=== PATIENT | female | born 1975 | race Caucasian/White ===

== ENCOUNTER 2020-12-19 17:40 | Observation (INO) ==
[2020-12-19 18:44] LABS: Basophils # 0.1 K/mcL (0.0-0.2); Basophils % 1.1 %; Eosinophils # 0.2 K/mcL (0.0-0.6); Eosinophils % 2.2 %; Hematocrit 42.5 % (35.3-44.9); Hemoglobin 14.1 g/dL (11.5-15.4); Immature Granulocytes % 0.4 % (0-4); Lymphocytes # 2.1 K/mcL (0.6-4.6); Lymphocytes % 24.9 %; Mean Corpuscular HGB Conc 33.2 g/dL (31.6-35.5); Mean Corpuscular Hemoglobin 30.2 pg (28.0-33.3); Mean Platelet Volume 10.2 fL (9.4-12.4); Monocytes # 0.8 K/mcL (0.0-1.3); Neutrophils # 5.2 K/mcL (1.6-8.9); Platelet Count 361 K/mcL (140-400); Red Blood Count 4.67 M/mcL (3.82-4.97); Red Cell Distribution Width 12.7 % (11.5-14.5); Segmented Neutrophils % 62.4 %; White Blood Count 8.3 K/mcL (4.3-11.1)
[2020-12-19 19:04] LABS: BUN/Creatinine Ratio 23 (6-26); Blood Urea Nitrogen 19 mg/dL (6-20); Carbon Dioxide 25 mEq/L (23-29); Chloride 102 mEq/L (98-107); Glucose 109 mg/dL (70-105); Osmolality,Calculated 287 (280-300); Potassium 3.8 mEq/L (3.5-5.1); Sodium 137 mEq/L (136-145); Troponin I 0.03 ng/mL (< 0.04); eGFR For African Americans > 60 (> 60); eGFR For Non-African Americans > 60 (> 60)
[2020-12-19] MEDS ORDERED: Aspirin 325 MG TABLET PO ONE (21:19)
[2020-12-19] MEDS ORDERED: Melatonin 3 MG TABLET PO PRN (21:30)
[2020-12-19] MEDS ORDERED: Acetaminophen 325 MG TABLET PO PRN (21:30)
[2020-12-19] MEDS ORDERED: Naloxone 0.4 MG/ML INJ IVP PRN (21:30)
[2020-12-19] MEDS ORDERED: Ondansetron 4 MG/2 ML VIAL IVP PRN (21:30)
[2020-12-19 22:00] LABS: Prothrombin Time 11.9 Seconds (9.4-12.1)
[2020-12-19 22:03] LABS: Activated Partial Thrombo Time 32.8 Seconds (26.0-36.0)
[2020-12-19 22:04] LABS: Alanine Aminotransferase 33 Units/L (7-52); Albumin 4.4 g/dL (3.5-5.7); Albumin/Globulin Ratio 1.2 (1.1-2.2); Alkaline Phosphatase 83 Units/L (34-104); Aspartate Amino Transferase 25 Units/L (13-39); Bilirubin,Direct 0.1 mg/dL (0.0-0.2); Bilirubin,Indirect 0.3 mg/dL (0.0-1.0); Bilirubin,Total 0.4 mg/dL (0.3-1.0); Globulin 3.6 g/dL (2.4-3.5); Magnesium 2.1 mg/dL (1.6-2.6); Phosphorous 2.9 mg/dL (2.7-4.5)
[2020-12-20] MEDS ORDERED: *HR* Heparin 5,000 UNIT/ML VIAL IVP ONE (00:41)
[2020-12-20] MEDS ORDERED: *HR* Heparin 5,000 UNIT/ML VIAL IVP PRN ×2 (00:41)
[2020-12-20] MEDS: Heparin 25,000UNIT/250ML 1/2NS 25,000 UNIT/250 ML IV.SOLN IVC SCH (03:07)
[2020-12-20 03:27] LABS: BUN/Creatinine Ratio 22 (6-26); Blood Urea Nitrogen 16 mg/dL (6-20); Calcium 9.7 mg/dL (8.6-10.3); Carbon Dioxide 25 mEq/L (23-29); Chloride 102 mEq/L (98-107); Chol/HDL Ratio 3.6 (0-4.9); Cholesterol 176 mg/dL (< 200); Glucose 95 mg/dL (70-105); HDL Cholesterol 49 mg/dL (40-59); LDL Cholesterol,Calculated 102 mg/dL (< 100); Osmolality,Calculated 287 (280-300); Potassium 3.4 mEq/L (3.5-5.1); Sodium 138 mEq/L (136-145); Triglycerides 126 mg/dL (< 150); eGFR For African Americans > 60 (> 60); eGFR For Non-African Americans > 60 (> 60)
[2020-12-20 03:41] LABS: Thyroid Stimulating Hormone 6.856 mcIU/mL (0.340-5.600)
[2020-12-20 03:48] LABS: Troponin I 0.04 ng/mL (< 0.04)
[2020-12-20] MEDS ORDERED: Perflutren Lipid Microsphere 1.3 ML in 0.9 % Sodium Chloride 8.7 ML IVP PRN (04:42)
[2020-12-20] MEDS: Aspirin Enteric Coated 81 MG Tablet PO SCH (11:02)
[2020-12-20 15:43] LABS: Estimated Average Glucose 111 mg/dl; Hemoglobin A1C 5.5 %
[2020-12-20] MEDS: amLODIPine 5 MG TABLET PO SCH (16:42)
[2020-12-20] MEDS: lisinopriL 20 MG TABLET PO SCH (19:49)
[2020-12-21] MEDS: Heparin 25,000UNIT/250ML 1/2NS 25,000 UNIT/250 ML IV.SOLN IVC SCH (02:52)
[2020-12-21] MEDS ORDERED: Regadenoson 0.4 MG/5 ML SYRINGE IVP ONE (07:19)
[2020-12-21] MEDS: lisinopriL 20 MG TABLET PO SCH ×2 (11:33→20:30)
[2020-12-21] MEDS: amLODIPine 5 MG TABLET PO SCH (11:33)
[2020-12-21] MEDS: Aspirin Enteric Coated 81 MG Tablet PO SCH (11:34)
[2020-12-21] MEDS: hydroCHLOROthiazide 25 MG TABLET PO SCH (11:34)
[2020-12-22] MEDS: Aspirin Enteric Coated 81 MG Tablet PO SCH (08:17)
[2020-12-22] MEDS: hydroCHLOROthiazide 25 MG TABLET PO SCH (08:18)
[2020-12-22] MEDS: lisinopriL 20 MG TABLET PO SCH (08:19)
[2020-12-22] MEDS: amLODIPine 5 MG TABLET PO SCH (08:23)
[2020-12-22 14:20] VITALS: BP 132/83
== END 2020-12-22 18:06 | disposition home or self-care (01) ==
LOC: EMEROOARM 17:40 → 3BNU 17:40 → SUATTDRO 21:33 → 3BNU 22:24
PROVIDERS: ADMIT Internal Medicine; ATTEND Registered Nurse